=== PATIENT | female | born 1955 | race Caucasian/White ===

== ENCOUNTER 2019-03-05 05:20 | Day surgery (SDC) | payer BC ==
--- NOTE | 2019-02-19 15:54 | RAD ---
EXAM DESCRIPTION: Chest x-ray,2 Views CLINICAL HISTORY: preop COMPARISON: None TECHNIQUE: PA/lateral FINDINGS: Plates and screws are seen in left ribs. Heart is prominent with normal with normal pulmonary vascularity. No pneumothorax. Blunting of the left costophrenic angle consistent with small effusion. Discoid atelectasis or linear scarring in the left lung base. Lateral view shows air fluid level anterior to the heart and ascending aorta which may indicate a small loculated hydropneumothorax anteriorly. This is most likely subacute related to the left rib fractures. Clinical correlation recommended. Healing rib fracture on the left at posterior third rib and anterior fourth rib. Lateral view shows intact sternum and T-spine. IMPRESSION: Lateral view shows air-fluid levels suggesting small loculated hydropneumothorax on the left. See above. Plates and screws in the left ribs. Electronically signed by: Nitin Traore MD 02/19/2019 3:52 PM [employer]
[2019-03-05] MEDS ORDERED: SODIUM CHL 0.9% 100ML MINI-BAG 100 ML IVPB ONE (07:03)
[2019-03-05] MEDS ORDERED: ceFAZolin SODIUM 1 GM VIAL ONE ×2 (07:03→09:27)
[2019-03-05] MEDS ORDERED: LACTATED RINGERS 1,000 ML ONE (07:03)
[2019-03-05] MEDS ORDERED: SODIUM BICARBONATE VIAL 50 MEQ/50 ML VIAL ONE (07:44)
[2019-03-05] MEDS ORDERED: LIDOCAINE 1% 50 ML VIAL INJ ONE ×2 (07:44→08:58)
[2019-03-05] MEDS ORDERED: KETAMINE HCL 100 MG/ML VIAL ONE (08:41)
[2019-03-05] MEDS ORDERED: DEXMEDETOMIDINE HCL 200 MCG/2 ML INJ IV ONE (08:41)
[2019-03-05] MEDS ORDERED: fentaNYL CITRATE INJ 50 MCG/ML AMP ONE (08:42)
[2019-03-05] MEDS ORDERED: MIDAZOLAM INJ 2 MG/2 ML VIAL ONE (08:42)
[2019-03-05] MEDS ORDERED: HEPARIN SODIUM 100 U/ML 5 ML SYG IV ONE ×6 (08:47→08:58)
[2019-03-05] MEDS ORDERED: SODIUM CHLORIDE 0.9% 50 ML VIAL ONE (08:47)
[2019-03-05] MEDS ORDERED: SODIUM CHLORIDE 0.9% 50 ML VIAL INJ ONE ×5 (08:58→10:00)
[2019-03-05] MEDS ORDERED: SODIUM BICARBONATE SYRINGE 50 MEQ/50 ML SYG IV ONE (08:58)
[2019-03-05] MEDS ORDERED: LIDOCAINE 1% 10 ML VIAL INJ ONE (10:00)
[2019-03-05] MEDS ORDERED: PROPOFOL 200 MG/20 ML VIAL IV ONE (10:00)
[2019-03-05] MEDS ORDERED: DEXAMETHASONE INJ 10 MG/ML VIAL IV ONE (10:00)
--- NOTE | 2019-03-05 10:58 | OP ---
DATE OF PROCEDURE: 03/05/19 PREOPERATIVE DIAGNOSIS: 1. 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 POSTOPERATIVE DIAGNOSIS: 1. 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 PROCEDURE: 1. Insertion, right subclavian venous access port using fluoroscopy. SURGEON: Joss Amaya MD. PORTABLE PINCH RIVETER: None. ANESTHESIA: Local infiltration of 1% lidocaine with bicarb and sedation by Anesthesia. INDICATION: The patient is a 63-year-old female who was found to have a carcinoma of the left lung. She underwent a left lobectomy. She has been seen by Oncology, Dr. Yfn Carvalho, and she is to begin neoadjuvant chemotherapy on this . She was brought to the Surgical Suite today for insertion of a port after the risks, benefits and alternatives to the procedure were discussed and accepted. FINDINGS: The guidewire and then the catheter were noted in the superior vena cava. Post placement chest x-ray is pending. PROCEDURE: After the patient was brought to the Surgical Suite and placed in supine position and she received some IV sedation, the patient was prepped and draped in the usual sterile manner. A surgical time-out was taken. When this was done, the infraclavicular area was infiltrated with local anesthesia. A 22- gauge needle was introduced and a flash of blood was obtained, but no good blood flow. At this point, an 18-gauge thin wall needle was introduced under the clavicle. Good venous return was obtained. The guidewire was introduced without difficulty. The needle was withdrawn. A towel was placed over the field and fluoroscopy was used to identify the guidewire in good position. At this point, the incision at the guidewire insertion site was made sharply and then local infiltration was obtained medial and inferior to the insertion site. The port pocket was formed in the usual manner with a sharp knife, electrocautery and blunt dissection, At this point, the catheter was tunneled from the port pocket to the insertion site. The port was sutured into the port pocket with two 3-0 Prolene simple sutures. When this was done, the catheter was cut to appropriate length. The dilator introducer was introduced over the guidewire and the guidewire and dilator were removed. The catheter which was cut to appropriate length was introduced through the introducer without difficulty. The introducer was then withdrawn. Hemostasis was noted to be adequate. The port was accessed with a straight Christie needle and aspirated easily. It was then flushed first with heparinized saline then with heplock and the needle withdrawn. A towel was placed over the field and fluoroscopy revealed the catheter in adequate position. When this was done, the port pocket site was closed with subcutaneous sutures of 3-0 Vicryl and the skin edges were approximated with 4-0 Vicryl subcuticular sutures, benzoin and Steri-Strips. The port pocket insertion site was likewise closed with a single 4-0 Vicryl suture. Steri-Strips were applied. A sterile dressings was applied. The patient tolerated the procedure well and was taken to the Ambulatory Unit in stable condition. Estimated blood loss was less than 25 mL. A stat portable chest x-ray is pending. #[id number] [facility]
--- NOTE | 2019-03-05 11:01 | RAD ---
EXAM DESCRIPTION: Chest,1 View (accession [id number]), Fluoroscopy Up to 1Hr (accession [id number]): CR/DR/XR. CLINICAL HISTORY: 63 years Female post port placement COMPARISON: 2 view chest January 2019. TECHNIQUE: ONE VIEW PORTABLE. AP 1050 hours, upright position, post VAD placement. Single AP fluoroscopic image taken by the referring physician intraoperatively during post port placement. No complicating process is demonstrated. Please refer to surgical report for specific details. Total fluoroscopic time was less than 8 seconds. Cumulative dose less than 0.65 mGy.. Permanent images of this procedure are stored in the patient's medical record. FINDINGS: VAD access via the right subclavian. Tip is in the mid to superior SVC. Injection port overlying the mid right lung. No mediastinal widening, no right pleural effusion, and no pneumothorax. No acute infiltrate. Chronic pleural thickening scarring and volume loss left lung with no acute infiltrate. ORIF for 4 posterior left ribs. IMPRESSION: VAD access via right subclavian with tip in customary position. No radiographic evidence of complications. Electronically signed by: Howie Orourke MD 03/05/2019 11:00 AM [employer]
--- NOTE | 2019-03-05 11:01 | RAD ---
EXAM DESCRIPTION: Chest,1 View (accession [id number]), Fluoroscopy Up to 1Hr (accession [id number]): CR/DR/XR. CLINICAL HISTORY: 63 years Female post port placement COMPARISON: 2 view chest January 2019. TECHNIQUE: ONE VIEW PORTABLE. AP 1050 hours, upright position, post VAD placement. Single AP fluoroscopic image taken by the referring physician intraoperatively during post port placement. No complicating process is demonstrated. Please refer to surgical report for specific details. Total fluoroscopic time was less than 8 seconds. Cumulative dose less than 0.65 mGy.. Permanent images of this procedure are stored in the patient's medical record. FINDINGS: VAD access via the right subclavian. Tip is in the mid to superior SVC. Injection port overlying the mid right lung. No mediastinal widening, no right pleural effusion, and no pneumothorax. No acute infiltrate. Chronic pleural thickening scarring and volume loss left lung with no acute infiltrate. ORIF for 4 posterior left ribs. IMPRESSION: VAD access via right subclavian with tip in customary position. No radiographic evidence of complications. Electronically signed by: Howie Orourke MD 03/05/2019 11:00 AM [employer]
[2019-03-05 11:37] VITALS: BP 134/71; TEMP 96.7; O2SAT 91
== END 2019-03-05 11:20 | disposition home or self-care (01) ==
LOC: AMB 05:20
PROVIDERS: ATTEND Surgery
DX: C34.92 Malignant neoplasm of unspecified part of left bronchus or lung (principal); I10 Essential (primary) hypertension; Z88.8 Allergy status to other drugs, medicaments and biological substances; Z79.899 Other long term (current) drug therapy
CPT/HCPCS: 00532; 36561; 71045; 71046; 76000; 80048; 81001; 85025; 93005; A4216; C1788; J0690; J1100; J1642; J2250; J3010; J3490; J7050; J7120